=== PATIENT | male | born 1980 | race Caucasian/White ===

== ENCOUNTER 2017-10-19 09:43 | Emergency (ER) | payer OTHER ==
[~2017-10-19] VITALS: Ht 180.3 cm; Wt 97.5 kg
== END 2017-10-19 10:30 | disposition home or self-care (01) ==
LOC: ER 09:43
DX: R04.0 Epistaxis (principal)
CPT/HCPCS: 99282

== ENCOUNTER 2017-11-27 09:52 | Emergency (ER) | payer OTHER ==
[~2017-11-27] VITALS: Ht 180.3 cm; Wt 108.9 kg
[2017-11-27] MEDS ORDERED: ALBU90OI INH (10:47)
== END 2017-11-27 10:51 | disposition home or self-care (01) ==
LOC: ER 09:52
DX: J45.909 Unspecified asthma, uncomplicated (principal); F17.200 Nicotine dependence, unspecified, uncomplicated
CPT/HCPCS: 94640

== ENCOUNTER 2017-12-09 09:01 | Emergency (ER) | payer OTHER ==
[~2017-12-09] VITALS: Ht 180.3 cm; Wt 104.3 kg
[~2017-12-09 09:01] MED LIST: ALBU90OI INH
[2017-12-09] MEDS ORDERED: PRED10 PO (09:57)
[2017-12-09] MEDS ORDERED: ALBU90OI INH (09:57)
[2017-12-10] MEDS ORDERED: CETI5 PO (04:14)
== END 2017-12-09 10:20 | disposition home or self-care (01) ==
LOC: ER 09:01
DX: J45.901 Unspecified asthma with (acute) exacerbation (principal)
CPT/HCPCS: 94644; 99283

== ENCOUNTER 2017-12-10 03:38 | Emergency (ER) | payer OTHER ==
[~2017-12-10] VITALS: Ht 180.3 cm; Wt 102.1 kg
[~2017-12-10 03:38] MED LIST changes: +PRED10 PO
[2017-12-10] MEDS ORDERED: CETI5 PO (04:14)
== END 2017-12-10 06:08 | disposition home or self-care (01) ==
LOC: ER 03:38
DX: J45.901 Unspecified asthma with (acute) exacerbation (principal); Z79.899 Other long term (current) drug therapy; Z79.52 Long term (current) use of systemic steroids
CPT/HCPCS: 94644; 99283

== ENCOUNTER 2018-10-04 21:51 | Emergency (ER) | payer SELFPAY ==
[~2018-10-04] VITALS: Ht 180.3 cm; Wt 108.9 kg
[~2018-10-04 21:51] MED LIST changes: +CETI5 PO
[2018-10-04 22:53] LABS: BASOPHILS ABSOLUTE AUTO 0.04 K/mm3 (0.00-0.23); BASOPHILS PERCENT AUTO 1 % (0-2); EOSINOPHILS ABSOLUTE AUTO 0.48 K/mm3 (0.00-0.68); EOSINOPHILS PERCENT AUTO 6 % (0-6); Hematocrit 40.4 % (37.0-53.0); Hemoglobin 12.7 g/dL (13.5-17.5); IMMATURE GRAN ABSOLUTE AUTO 0.01 K/mm3 (0.00-0.10); IMMATURE GRAN PERCENT AUTO 0 % (0-1); LYMPHOCYTES ABSOLUTE AUTO 2.94 K/mm3 (0.84-5.20); LYMPHOCYTES PERCENT AUTO 36 % (21-46); MONOCYTES ABSOLUTE AUTO 0.68 K/mm3 (0.16-1.47); MONOCYTES PERCENT AUTO 8 % (4-13); Mean Corpuscular HGB 27.3 pg (26.0-34.0); Mean Corpuscular HGB Conc 31.4 g/dL (31.5-36.5); Mean Corpuscular Volume 87 fL (80-100); Mean Platelet Volume 9.8 fL (9.1-12.4); NEUTROPHILS PERCENT AUTO 49 % (41-73); Platelet Count 391 K/mm3 (150-400); RDW Standard Deviation 40.6 fL (35.1-46.3); Red Blood Cell Count 4.65 M/mm3 (4.30-5.90); White Blood Cell Count 8.15 K/mm3 (4.00-11.30)
[2018-10-04 23:14] LABS: Alanine Aminotransfer (ALT/SGP 30 U/L (12-78); Albumin, Blood 3.8 g/dL (3.4-5.0); Albumin/Globulin Ratio 1.1 (0.8-1.8); Alk Phos 81 U/L (50-136); Anion Gap 3 mmol/L (6-16); Aspartate Aminotrans (AST/SGOT 24 U/L (12-37); Bilirubin, Total 0.3 mg/dL (0.1-1.0); Blood Urea Nitrogen 15 mg/dL (8-24); Bun/Creatinine Ratio 13.9 (12.0-20.0); CO2, Blood 29 mmol/L (21-32); Calcium, Blood 9.4 mg/dL (8.5-10.1); Chloride, Blood 109 mmol/L (98-108); Creatinine, Blood 1.08 mg/dL (0.60-1.20); Globulin, Blood 3.5 g/dL (2.2-4.0); Glomerular Filtration Rate >60 (60-); Glucose, Blood 105 mg/dL (70-99); Potassium, Blood 3.7 mmol/L (3.5-5.5); Sodium, Blood 141 mmol/L (136-145); Total Protein, Blood 7.3 g/dL (6.4-8.2)
[2018-10-04] MEDS ORDERED: HYDCHL25 PO (23:41)
== END 2018-10-04 23:50 | disposition home or self-care (01) ==
LOC: ER 21:51
PROVIDERS: Emergency Medicine
DX: I10 Essential (primary) hypertension (principal); J45.909 Unspecified asthma, uncomplicated; Z79.899 Other long term (current) drug therapy
CPT/HCPCS: 80053; 85025; 93005; 93010; 99283-25

== ENCOUNTER 2018-12-13 20:22 | Emergency (ER) | payer SELFPAY ==
[~2018-12-13] VITALS: Ht 182.9 cm; Wt 104.3 kg
[~2018-12-13 20:22] MED LIST changes: +HYDCHL25 PO
== END 2018-12-13 23:41 | disposition home or self-care (01) ==
LOC: ER 20:22
DX: S01.411A Laceration without foreign body of right cheek and temporomandibular area, initial encounter (principal); S00.11XA Contusion of right eyelid and periocular area, initial encounter; W22.8XXA Striking against or struck by other objects, initial encounter; Z79.899 Other long term (current) drug therapy; I10 Essential (primary) hypertension; J45.909 Unspecified asthma, uncomplicated; F17.220 Nicotine dependence, chewing tobacco, uncomplicated
CPT/HCPCS: 12011; 70486; 99283-25

== ENCOUNTER 2019-10-14 12:40 | Emergency (ER) | payer SELFPAY ==
[~2019-10-14] VITALS: Ht 180.3 cm; Wt 102.1 kg
== END 2019-10-14 17:45 | disposition home or self-care (01) ==
LOC: ER 12:40
DX: T18.128A Food in esophagus causing other injury, initial encounter (principal); J45.909 Unspecified asthma, uncomplicated; I10 Essential (primary) hypertension; Z79.899 Other long term (current) drug therapy; F17.220 Nicotine dependence, chewing tobacco, uncomplicated
CPT/HCPCS: 71045; 93005; 93010; 96374; 96375; 99284-25; J1610; J2060

== ENCOUNTER 2020-07-29 18:22 | Emergency (ER) | payer OTHER ==
[~2020-07-29] VITALS: Ht 180.3 cm; Wt 111.1 kg
[2020-07-29] MEDS ORDERED: CYCL10 PO (20:16)
== END 2020-07-29 20:35 | disposition home or self-care (01) ==
LOC: ER 18:22
DX: M79.604 Pain in right leg (principal); I10 Essential (primary) hypertension; J45.909 Unspecified asthma, uncomplicated; F17.220 Nicotine dependence, chewing tobacco, uncomplicated; Z79.899 Other long term (current) drug therapy
CPT/HCPCS: 99283; A9270

== ENCOUNTER 2023-12-15 07:52 | Day surgery (SDC) | payer OTHER ==
[2023-12-15] VITALS (12 sets, daily range): BP systolic 132–163; BP diastolic 85–116
[~2023-12-15] VITALS: Ht 182.9 cm; Wt 105.8 kg
[~2023-12-15 07:52] MED LIST changes: +Benzocaine Oral Spray 0.5ML UD ONE; +CYCL10 PO; +FLUT1DIS5; +LISI20 PO; +Lactated Ringer's 1,000 ML IV SCH; +OMEP20ER PO
[2023-12-15] MEDS ORDERED: propofoL 20 ML IV ONE (08:59)
[2023-12-15] MEDS ORDERED: Midazolam HCl 1MG / ML 2ML Vial ONE (09:08)
--- NOTE | 2023-12-15 09:16 | NUR ---
12/15/23 0916 Luis Lucas HISTORY, CHART, MEDICATIONS AND ALLERGIES REVIEWED BEFORE START OF PROCEDURE. PATIENT CONFIRMS NPO STATUS AND AGREES WITH SCHEDULED PROCEDURE. 3-LEAD EKG REVIEWED WITH PHYSICIAN PRIOR TO START OF PROCEDURE. MONITOR INTACT WITH CONTINUOUS PULSE OXIMETRY,CAPNOGRAPHY, 3-LEAD EKG, INTERMITTENT BP. SUPPLEMENTAL O2 TO BE TITRATED THROUGHOUT PROCEDURE TO MAINTAIN O2 SATURATION ABOVE 90%. PATIENT DETERMINED TO BE ASA APPROPRIATE FOR PROPOFOL SEDATION PRIOR TO START OF PROCEDURE BY DR. JOHNSON. Bite Block Placed. HURRICAINE SPRAY TO OROPHARYX.
--- NOTE | 2023-12-15 09:35 | NUR ---
PT TO DAY SURGERY STEP DOWN FROM EGD; BEDSIDE REPORT RECEIVED. PT IS AWAKE, ALERT AND ORIENTED; PT ABLE TO MOVE SELF IN BED. VSS. PT HAS NO COMPLAINTS AT THIS TIME.
--- NOTE | 2023-12-15 09:46 | NUR ---
PT DECLINES PO FLUIDS. Discharge instructions reviewed with patient. Patient verbalizes understanding. Copy given to patient to take home. Patient States Post-Procedure ride home has been arranged.
--- NOTE | 2023-12-15 09:56 | NUR ---
Patient up to Ambulate independently. Gait steady. Discharged via wheelchair to private car for ride home.
== END 2023-12-15 09:57 | disposition home or self-care (01) ==
LOC: ORSCMMR 07:52 → ORD 09:30 → ORSCMMR 09:30
PROVIDERS: Internal Medicine Gastroenterology
PROC: 0DJ08ZZ Inspection of Upper Intestinal Tract, Via Natural or Artificial Opening Endoscopic (ICD-10-PCS; principal; 2023-12-15 09:30)
DX: K22.70 Barrett's esophagus without dysplasia (principal); I10 Essential (primary) hypertension; J45.909 Unspecified asthma, uncomplicated; Z87.19 Personal history of other diseases of the digestive system; Z79.899 Other long term (current) drug therapy
CPT/HCPCS: 88305; A9270; J2250; J2704; J7120

== ENCOUNTER → 2024-04-15 | Outpatient (CLI) | payer OTHER ==
[~2024-04-15] MED LIST changes: -Benzocaine Oral Spray 0.5ML UD ONE; -Lactated Ringer's 1,000 ML IV SCH
[2024-04-15 19:03] LABS: BASOPHILS ABSOLUTE AUTO 0.04 K/mm3 (0.00-0.23); BASOPHILS PERCENT AUTO 1 % (0-2); EOSINOPHILS PERCENT AUTO 9 % (0-6); Hematocrit 43.8 % (37.0-53.0); Hemoglobin 14.2 g/dL (13.5-17.5); IMMATURE GRAN ABSOLUTE AUTO 0.01 K/mm3 (0.00-0.10); IMMATURE GRAN PERCENT AUTO 0 % (0-1); LYMPHOCYTES ABSOLUTE AUTO 1.87 K/mm3 (0.84-5.20); LYMPHOCYTES PERCENT AUTO 29 % (21-46); MONOCYTES ABSOLUTE AUTO 0.41 K/mm3 (0.16-1.47); MONOCYTES PERCENT AUTO 7 % (4-13); Mean Corpuscular HGB 28.1 pg (26.0-34.0); Mean Corpuscular HGB Conc 32.4 g/dL (31.5-36.5); Mean Corpuscular Volume 87 fL (80-100); Mean Platelet Volume 10.3 fL (9.1-12.4); NEUTROPHILS ABSOLUTE AUTO 3.42 K/mm3 (1.96-9.15); NEUTROPHILS PERCENT AUTO 54 % (41-73); Platelet Count 356 K/mm3 (150-400); RDW Coefficient Variation 12.4 % (11.7-14.2); RDW Standard Deviation 38.9 fL (35.1-46.3); Red Blood Cell Count 5.05 M/mm3 (4.30-5.90); White Blood Cell Count 6.35 K/mm3 (4.00-11.30)
[2024-04-15 19:55] LABS: Alanine Aminotransfer (ALT/SGP 32 U/L (12-78); Albumin, Blood 4.2 g/dL (3.4-5.0); Albumin/Globulin Ratio 1.1 (0.8-1.8); Alk Phos 69 U/L (50-136); Anion Gap 9 mmol/L (3-11); Aspartate Aminotrans (AST/SGOT 26 U/L (12-37); Bilirubin, Total 0.3 mg/dL (0.1-1.0); Blood Urea Nitrogen 19 mg/dL (8-24); Bun/Creatinine Ratio 17.3 (12.0-20.0); CHOL/HDL RATIO 4.8; CO2, Blood 25 mmol/L (21-32); Calcium, Blood 10.7 mg/dL (8.5-10.1); Chloride, Blood 112 mmol/L (98-108); Cholesterol 210 mg/dL (50-200); Globulin, Blood 3.8 g/dL (2.2-4.0); Glomerular Filtration Rate 85 (60-); Glucose, Blood 106 mg/dL (70-99); HDL Cholesterol 44 mg/dL (>39); LDL/HDL RATIO 2.3; Low Density Lipoprotein Chol 100 mg/dL (0-110); Sodium, Blood 142 mmol/L (136-145); Thyroid Stimulating Hormone 0.818 uIU/mL (0.360-4.800); Triglycerides 328 mg/dL (30-160); Very Low Density Lipoprot Chol 65 mg/dL (6-32)
[2024-04-20 16:24] LABS: ALBUMIN %,URINE 52.2 %; ALPHA-1 %,URINE 6.1 %; ALPHA-2 %,URINE 15.3 %; BETA GLOBULIN %,URINE 19.1 %; GAMMA GLOBULIN %,URINE 7.3 %; HOURS COLLECTED Random hr; TOTAL VOLUME Random mL
== END | disposition home or self-care (01) ==
LOC: LAB 16:57 → LAB SHORT 16:57
DX: E83.52 Hypercalcemia (principal); E78.5 Hyperlipidemia, unspecified; R53.83 Other fatigue
CPT/HCPCS: 80053; 80061; 82310; 82570; 83970; 84443; 85025

== ENCOUNTER 2025-04-10 06:08 | Day surgery (SDC) | payer OTHER ==
[~2025-04-10] VITALS: Ht 182.9 cm; Wt 108.4 kg
[2025-04-10] MEDS ORDERED: IRON18 M1 (06:54)
[2025-04-10] MEDS ORDERED: THERA-D2000 UNIT (06:54)
[2025-04-10] MEDS ORDERED: Lidocaine 2%-Epineph 1:200000 20 ML SDV ONE (06:57)
[2025-04-10] MEDS ORDERED: FentaNYL Citrate 50 MCG/ML 2 ML Injection ONE ×3 (07:25→10:30)
[2025-04-10] MEDS ORDERED: Rocuronium Bromide 10 MG/ML 5ML Injection IV ONE (07:45)
[2025-04-10] MEDS ORDERED: SuccINYLCHOLINE Chloride 100 MG/5 ML 5MLSYR ONE (07:45)
[2025-04-10] MEDS ORDERED: Dexamethasone Sod Phos 10 MG/ML 1ML VIAL ONE (07:45)
[2025-04-10] MEDS ORDERED: Glycopyrrolate 0.2 MG/ML 5ML VIAL ONE (07:57)
[2025-04-10] MEDS ORDERED: ePHEDrine Sulfate 50 MG/ML 1ML Injection ONE (08:41)
[2025-04-10] MEDS ORDERED: Ondansetron HCl 2 MG / ML 2ML Vial ONE (08:58)
--- NOTE | 2025-04-10 10:15 | NUR ---
04/10/25 1015 Artemio Rich PT UP TO THE BR VIA WC.
[2025-04-10 10:38] VITALS: BP 138/96
[2025-04-10] MEDS ORDERED: Ketorolac Tromethamine 30mg Vial ONE (10:49)
== END 2025-04-10 12:05 | disposition home or self-care (01) ==
LOC: ORSCSDS 06:08
PROVIDERS: Otolaryngology
PROC: 0GBN0ZZ Excision of Right Inferior Parathyroid Gland, Open Approach (ICD-10-PCS; principal; 2025-04-10 07:30)
PROC: 0GTH0ZZ Resection of Right Thyroid Gland Lobe, Open Approach (ICD-10-PCS; principal; 2025-04-10 07:30)
DX: D35.1 Benign neoplasm of parathyroid gland (principal); E04.1 Nontoxic single thyroid nodule; E21.0 Primary hyperparathyroidism; I10 Essential (primary) hypertension; K21.9 Gastro-esophageal reflux disease without esophagitis; J45.909 Unspecified asthma, uncomplicated; Z79.899 Other long term (current) drug therapy; E66.9 Obesity, unspecified; Z68.32 Body mass index [BMI] 32.0-32.9, adult
CPT/HCPCS: 83970; 88305; 88307; 88331; A9270; J0330; J1100; J1885; J2405; J2704; J3010; J7120